=== PATIENT | male | born 1975 ===

== ENCOUNTER 2017-11-08 19:15 | Emergency (ER) | payer SELFPAY ==
[2017-11-08 19:31] VITALS: BP 101/74; PULSE 84; RESP 18; TEMP 98.2; O2SAT 97
--- NOTE | 2017-11-08 20:34 | ED PDOC ---
HPI: Allergic Reaction Time Seen by Provider: 11/08/17 20:04 Chief Complaint (Nursing): Allergic Reaction Chief Complaint (Provider): Allergic Reaction History Per: Patient History/Exam Limitations: no limitations Onset/Duration Of Symptoms: Hrs Current Symptoms Are (Timing): Still Present Additional Complaint(s): 42 y/o female presents to the ED complaining of swelling. Patient states earlier this evening, he suddenly developed swelling to his entire body along with pruritus. Patient states he has had similar symptoms three months ago and was prescribed Benadryl, Pepcid, and Prednisone. Patient reports he never took the medication when initially prescribed because symptoms resolved spontaneously. Patient states he has had intermittent allergic reactions for the past 14 years. Patient has seen medical administrative technician in the past and was told they were unable to find the source of the reaction. Of note, since taking medications, symptoms have resolved. Denies shortness of breath, throat swelling , and history of anaphylactic reaction. PMD: None Provided Past Medical History Reviewed: Historical Data, Nursing Documentation, Vital Signs Vital Signs: Last Vital Signs Temp 98.2 F 11/08/17 19:28 Pulse 84 11/08/17 19:28 Resp 18 11/08/17 19:28 BP 101/74 11/08/17 19:28 Pulse Ox 97 11/08/17 19:28 - Medical History PMH: No Chronic Diseases - Surgical History Surgical History: No Surg Hx - Family History Family History: States: Unknown Family Hx - Allergies Allergies/Adverse Reactions: Allergies Allergy/AdvReac Type Severity Reaction Status Date / Time No Known Allergies Allergy Verified 11/08/17 19:28 Review of Systems ROS Statement: Except As Marked, All Systems Reviewed And Found Negative Musculoskeletal: Positive for: Other (Swelling to entire body ) Physical Exam - Reviewed Nursing Documentation Reviewed: Yes Vital Signs Reviewed: Yes - Physical Exam Appears: Positive for: No Acute Distress (speaking in full sentences) Skin: Positive for: Normal Color, Warm, Dry Eye Exam: Positive for: Normal appearance, EOMI, PERRL Cardiovascular/Chest: Positive for: Regular Rate, Rhythm. Negative for: Murmur Respiratory: Positive for: Normal Breath Sounds. Negative for: Wheezing Neurologic/Psych: Positive for: Alert, Oriented (x3). Negative for: Motor/ Sensory Deficits - ECG O2 Sat by Pulse Oximetry: 97 (RA) Pulse Ox Interpretation: Normal - Progress ED Course And Treament: Scribe Attestation: Documented by Michelle Zafar, acting as a scribe for Thiago Gallardo PA-C. Provider Scribe Attestation: All medical record entries made by the Scribe were at my direction and personally dictated by me. I have reviewed the chart and agree that the record accurately reflects my personal performance of the history, physical exam, medical decision making, and the department course for this patient. I have also personally directed, reviewed, and agree with the discharge instructions and disposition. Disposition - Clinical Impression Clinical Impression: Urticaria - Patient ED Disposition Is Patient to be Admitted: No - Disposition Referrals: Naveed Almaguer [Outside] Disposition: Routine/Home Disposition Time: 20:32 Condition: IMPROVED Additional Instructions: Continue Prednisone, Pepcid, and Diphenhydramine as prescribed. Return to ED immediately if symptoms worsen. Follow up with PMD or medical administrative technician for further evaluation. Instructions: Dorene (DC) Forms: [employer] (Armenian) Print Language: SPANISH
== END 2017-11-08 20:55 | disposition home or self-care (01) ==
LOC: H.ER 19:15
DX: L50.0 Allergic urticaria (principal); T78.40XA Allergy, unspecified, initial encounter